=== PATIENT | female | born 1935 | race Caucasian/White ===

== ENCOUNTER → 2017-12-18 | Outpatient (CLI) | payer OTHER | LOC: RAD 01:10 | DX: Z12.31 Encounter for screening mammogram for malignant neoplasm of breast (principal) ==

== ENCOUNTER → 2019-01-31 | Outpatient (CLI) | payer OTHER | LOC: RAD 01:14 | DX: Z12.31 Encounter for screening mammogram for malignant neoplasm of breast (principal) ==